=== PATIENT | male | born 1980 | race Two or more races ===

== ENCOUNTER 2017-01-10 10:17 | Outpatient (CLI) | payer OTHER ==
[~2017-01-10] VITALS: Ht 170.2 cm; Wt 86.2 kg
[2017-01-10] MEDS ORDERED: Excedrin Migraine tab ONE (10:18)
[2017-01-10] MEDS ORDERED: Midazolam 2mg/2ml Inj ONE (10:18)
[2017-01-10] MEDS ORDERED: NS 550ML IV ONE (10:18)
[2017-01-10] MEDS ORDERED: Methohexital Sodium Syr 100mg/10ml IVP ONE (10:18)
[2017-01-10] MEDS ORDERED: Succinylcholine 20mg/ml 10ml vial ONE (10:18)
[2017-01-10] MEDS ORDERED: Excedrin Migraine tab ORAL PRN (11:04)
[2017-01-10] MEDS ORDERED: Midazolam 2mg/2ml Inj IVP PRN (11:04)
[2017-01-13] MEDS ORDERED: Excedrin Migraine tab ONE (07:00)
[2017-01-13] MEDS ORDERED: Diazepam 10mg/2ml Inj ONE (07:00)
[2017-01-13] MEDS ORDERED: Succinylcholine 20mg/ml 10ml vial ONE (07:00)
[2017-01-13] MEDS ORDERED: Methohexital Sodium Syr 100mg/10ml IVP ONE (07:00)
[2017-01-13] MEDS ORDERED: NS 550ML IV ONE (07:00)
[2017-01-13] MEDS ORDERED: Ketorolac 60mg Inj ONE (07:00)
[2017-01-13] MEDS ORDERED: Excedrin Migraine tab ORAL PRN (10:52)
[2017-01-15] MEDS ORDERED: Excedrin Migraine tab ORAL PRN (10:53)
[2017-01-15] MEDS ORDERED: Excedrin Migraine tab ONE (12:30)
[2017-01-15] MEDS ORDERED: Succinylcholine 20mg/ml 10ml vial ONE (12:30)
[2017-01-15] MEDS ORDERED: Diazepam 10mg/2ml Inj ONE (12:30)
[2017-01-15] MEDS ORDERED: Ketorolac 30mg Inj ONE (12:30)
[2017-01-15] MEDS ORDERED: Methohexital Sodium Syr 100mg/10ml IVP ONE (12:30)
[2017-01-15] MEDS ORDERED: NS 550ML IV ONE (12:30)
== END 2017-01-10 12:17 | disposition home or self-care (01) ==
LOC: ECT 10:17
DX: F33.2 Major depressive disorder, recurrent severe without psychotic features (principal); F42.9 Obsessive-compulsive disorder, unspecified
CPT/HCPCS: 90870; J0330; J2250; J7040

== ENCOUNTER 2017-01-10 10:17 | Outpatient (RCR) | payer OTHER ==
[~2017-01-10] VITALS: Ht 170.2 cm; Wt 86.2 kg
[2017-01-17] MEDS ORDERED: Excedrin Migraine tab ORAL PRN (12:30)
[2017-01-17] MEDS ORDERED: Excedrin Migraine tab ONE (15:15)
[2017-01-17] MEDS ORDERED: Ketorolac 30mg Inj ONE (15:15)
[2017-01-17] MEDS ORDERED: Succinylcholine 20mg/ml 10ml vial ONE (15:15)
[2017-01-17] MEDS ORDERED: Diazepam 10mg/2ml Inj ONE (15:15)
[2017-01-17] MEDS ORDERED: NS 550ML IV ONE (15:15)
[2017-01-17] MEDS ORDERED: Methohexital Sodium Syr 100mg/10ml IVP ONE (15:15)
== END 2017-01-17 | disposition home or self-care (01) ==
LOC: ECT 10:17
DX: F33.2 Major depressive disorder, recurrent severe without psychotic features (principal)
CPT/HCPCS: 90870; J0330; J1885; J3360; J7040

== ENCOUNTER 2017-01-22 06:19 | Outpatient (RCR) | payer OTHER ==
[~2017-01-22] VITALS: Ht 170.2 cm; Wt 86.2 kg
[2017-01-22] MEDS ORDERED: Excedrin Migraine tab ONE ×2 (06:20)
[2017-01-22] MEDS ORDERED: NS 550ML IV ONE ×2 (06:20)
[2017-01-22] MEDS ORDERED: Diazepam 10mg/2ml Inj ONE ×2 (06:20)
[2017-01-22] MEDS ORDERED: Methohexital Sodium Syr 100mg/10ml IVP ONE ×2 (06:20)
[2017-01-22] MEDS ORDERED: Ketorolac 60mg Inj ONE ×2 (06:20)
[2017-01-22] MEDS ORDERED: Succinylcholine 20mg/ml 10ml vial ONE ×2 (06:20)
[2017-01-22] MEDS ORDERED: Excedrin Migraine tab ORAL PRN (10:53)
[2017-01-24] MEDS ORDERED: Ketorolac 60mg Inj ONE (08:00)
[2017-01-24] MEDS ORDERED: Excedrin Migraine tab ONE (08:00)
[2017-01-24] MEDS ORDERED: NS 550ML IV ONE (08:00)
[2017-01-24] MEDS ORDERED: Succinylcholine 20mg/ml 10ml vial ONE (08:00)
[2017-01-24] MEDS ORDERED: Methohexital Sodium Syr 100mg/10ml IVP ONE (08:00)
[2017-01-24] MEDS ORDERED: Diazepam 10mg/2ml Inj ONE (08:00)
[2017-01-24] MEDS ORDERED: Excedrin Migraine tab ORAL PRN (08:30)
[2017-01-27] MEDS ORDERED: Excedrin Migraine tab ONE (07:00)
[2017-01-27] MEDS ORDERED: Ketorolac 60mg Inj ONE (07:00)
[2017-01-27] MEDS ORDERED: NS 550ML IV ONE (07:00)
[2017-01-27] MEDS ORDERED: Succinylcholine 20mg/ml 10ml vial ONE (07:00)
[2017-01-27] MEDS ORDERED: Diazepam 10mg/2ml Inj ONE (07:00)
[2017-01-27] MEDS ORDERED: Methohexital Sodium Syr 100mg/10ml IVP ONE (07:00)
[2017-01-27] MEDS ORDERED: Excedrin Migraine tab ORAL PRN (09:07)
[2017-01-29] MEDS ORDERED: Ketorolac 60mg Inj ONE (07:00)
[2017-01-29] MEDS ORDERED: Excedrin Migraine tab ONE (07:00)
[2017-01-29] MEDS ORDERED: Methohexital Sodium Syr 100mg/10ml IVP ONE (07:00)
[2017-01-29] MEDS ORDERED: Diazepam 10mg/2ml Inj ONE (07:00)
[2017-01-29] MEDS ORDERED: NS 550ML IV ONE (07:00)
[2017-01-29] MEDS ORDERED: Succinylcholine 20mg/ml 10ml vial ONE (07:00)
[2017-01-29] MEDS ORDERED: Excedrin Migraine tab ORAL PRN (09:41)
[2017-01-31] MEDS ORDERED: NS 550ML IV ONE (07:00)
[2017-01-31] MEDS ORDERED: Diazepam 10mg/2ml Inj ONE (07:00)
[2017-01-31] MEDS ORDERED: Excedrin Migraine tab ONE (07:00)
[2017-01-31] MEDS ORDERED: Ketorolac 60mg Inj ONE (07:00)
[2017-01-31] MEDS ORDERED: Methohexital Sodium Syr 100mg/10ml IVP ONE (07:00)
[2017-01-31] MEDS ORDERED: Succinylcholine 20mg/ml 10ml vial ONE (07:00)
[2017-01-31] MEDS ORDERED: Excedrin Migraine tab ORAL PRN (09:27)
[2017-02-03] MEDS ORDERED: Ketorolac 60mg Inj ONE (08:00)
[2017-02-03] MEDS ORDERED: Succinylcholine 20mg/ml 10ml vial ONE (08:00)
[2017-02-03] MEDS ORDERED: Excedrin Migraine tab ONE (08:00)
[2017-02-03] MEDS ORDERED: Diazepam 10mg/2ml Inj ONE (08:00)
[2017-02-03] MEDS ORDERED: Methohexital Sodium Syr 100mg/10ml IVP ONE (08:00)
[2017-02-03] MEDS ORDERED: NS 550ML IV ONE (08:00)
[2017-02-05] MEDS ORDERED: Ketorolac 60mg Inj ONE (07:00)
[2017-02-05] MEDS ORDERED: Excedrin Migraine tab ONE (07:00)
[2017-02-05] MEDS ORDERED: NS 550ML IV ONE (07:00)
[2017-02-05] MEDS ORDERED: Methohexital Sodium Syr 100mg/10ml IVP ONE (07:00)
[2017-02-05] MEDS ORDERED: Diazepam 10mg/2ml Inj ONE (07:00)
[2017-02-05] MEDS ORDERED: Succinylcholine 20mg/ml 10ml vial ONE (07:00)
[2017-02-05] MEDS ORDERED: Excedrin Migraine tab ORAL PRN (11:30)
[2017-02-07] MEDS ORDERED: Succinylcholine 20mg/ml 10ml vial ONE (07:00)
[2017-02-07] MEDS ORDERED: Methohexital Sodium Syr 100mg/10ml IVP ONE (07:00)
[2017-02-07] MEDS ORDERED: Excedrin Migraine tab ONE (07:00)
[2017-02-07] MEDS ORDERED: NS 550ML IV ONE (07:00)
[2017-02-07] MEDS ORDERED: Ketorolac 60mg Inj ONE (07:00)
[2017-02-07] MEDS ORDERED: Diazepam 10mg/2ml Inj ONE (07:00)
[2017-02-07] MEDS ORDERED: Excedrin Migraine tab ORAL PRN (09:33)
[2017-02-10] MEDS ORDERED: Excedrin Migraine tab ONE (08:00)
[2017-02-10] MEDS ORDERED: Methohexital Sodium Syr 100mg/10ml IVP ONE (08:00)
[2017-02-10] MEDS ORDERED: Succinylcholine 20mg/ml 10ml vial ONE (08:00)
[2017-02-10] MEDS ORDERED: NS 550ML IV ONE (08:00)
[2017-02-10] MEDS ORDERED: Ketorolac 60mg Inj ONE (08:00)
[2017-02-10] MEDS ORDERED: Diazepam 10mg/2ml Inj ONE (08:00)
[2017-02-14] MEDS ORDERED: Excedrin Migraine tab ORAL PRN (09:37)
== END 2017-02-17 | disposition home or self-care (01) ==
LOC: ECT 06:19
DX: F33.2 Major depressive disorder, recurrent severe without psychotic features (principal)
CPT/HCPCS: 90870; J0330; J3360; J7040

== ENCOUNTER 2017-02-21 07:13 | Outpatient (RCR) | payer OTHER ==
[~2017-02-21] VITALS: Ht 170.2 cm; Wt 86.2 kg
[2017-02-21] MEDS ORDERED: Succinylcholine 20mg/ml 10ml vial ONE (07:14)
[2017-02-21] MEDS ORDERED: Ketorolac 60mg Inj ONE (07:14)
[2017-02-21] MEDS ORDERED: Excedrin Migraine tab ONE (07:14)
[2017-02-21] MEDS ORDERED: NS 500ML IV ONE (07:14)
[2017-02-21] MEDS ORDERED: Methohexital Sodium Syr 100mg/10ml IVP ONE (07:14)
== END 2017-03-20 | disposition home or self-care (01) ==
LOC: ECT 07:13
DX: F33.2 Major depressive disorder, recurrent severe without psychotic features (principal)
CPT/HCPCS: 90870; J0330; J3360; J7040